=== PATIENT | female | born 1995 | race Caucasian/White ===

== ENCOUNTER 2022-10-07 20:58 | Emergency (ER) | payer MEDICAID, OTHER ==
[~2022-10-07] VITALS: Ht 170.2 cm; Wt 72.0 kg
[2022-10-07 21:15] VITALS: BP 119/75
[2022-10-07] MEDS ORDERED: KETOROLAC TROMETHAMINE 60 MG/2 ML VIAL IM ONE (21:45)
[2022-10-07] MEDS ORDERED: HYDROCODONE/ACETAMINOPHEN 5-325 MG TABLET PO ONE (21:45)
[2022-10-07] MEDS ORDERED: AMOX500T2 PO (22:31)
[2022-10-07] MEDS ORDERED: HYDR-4723 PO (22:31)
== END 2022-10-07 22:48 | disposition still patient (30) ==
LOC: EMS 20:59
DX: K08.89 Other specified disorders of teeth and supporting structures (principal)
CPT/HCPCS: 99283; 96372; J1885

== ENCOUNTER 2023-07-14 07:48 | Emergency (ER) | payer OTHER ==
[~2023-07-14] VITALS: Ht 172.7 cm; Wt 68.2 kg
[~2023-07-14 07:48] MED LIST: AMOX500T2 PO; HYDR-4723 PO
[2023-07-14 07:51] VITALS: TEMP 98
[2023-07-14 08:28] VITALS: BP 117/90; PULSE 95; RESP 16
== END 2023-07-14 08:29 | disposition home or self-care (01) ==
LOC: EMS 08:02
DX: S00.90XD Unspecified superficial injury of unspecified part of head, subsequent encounter (principal); Z48.02 Encounter for removal of sutures; X58.XXXD Exposure to other specified factors, subsequent encounter
CPT/HCPCS: 99282; Z7502